=== PATIENT | female | born 1960 | race Caucasian/White ===

== ENCOUNTER 2017-02-20 12:48 | Inpatient (IN) | payer OTHER ==
--- NOTE | 2017-02-14 13:44 | HP ---
Admitting History and Physical - Primary Care Physician PCP: Juwan Vivar - Admission Chief Complaint: Left breast cancer History of Present Illness: 56 year old nulliparous postmenapausal female with family H/O breast caner and personal H/O left breast cancer 2004 for a 1 cm invasive ductal carcinoma ER/MD positive HER 2 negative. S/P left breast wide excision RT no chemotherapy and she refused tamoxifen. Nov 2016 she noticed some left bloody nipple discharge and there was an enlarging left breast density Left lower outer aspect of breast . mammogram and US done 12/20/2016 in [place] showed postop stable changes. MRI done dec 2016 showed suspicious enhancement in lower outer aspect of left breast extending 4 cm. Repeat left breast us was suspicious and US core biopsy 01/24/2017 showed invasive ductal carcinoma ER/ MD negative HER 2 positive. History Source: Patient Limitations to Obtaining History: No Limitations - Past Medical History Psych: Yes: Depression, Other (ADHD) Additional Past Medical History: Left breast invasive breast cancer S/P left breast wide excision/ RT 2004 - Past Surgical History Additional Past Surgical History: Left breast wide excision for left breast invasive cancer 1 cm received RT no chemotherapy or tamoxifen Right breast bx 2011 atypia - Smoking History Smoking history: Never smoked Have you smoked in the past 12 months: No - Alcohol/Substance Use Hx Alcohol Use: Yes (social) Home Medications - Allergies Allergies/Adverse Reactions: Allergies Allergy/AdvReac Type Severity Reaction Status Date / Time No Known Allergies Allergy Verified 02/14/17 13:47 - Home Medications Home Medications (free text): methylphenidate Family Disease History - Family Disease History Family Disease History: CA: Grandparent (pat GF pancreatic ca), Mother (Breast ca at 72) Other Family History: mat aunt leukemia Physical Examination Constitutional: Yes: Well Nourished Breast(s): Yes: Other (Left breast is smaller than right due to wide excision and RT but good cosmetic results. palpable density left breast lower outer aspect left breast which is firm and increased in size +bloody nipple discharge no palpable adneopathy or msses in the right breat) Problem List - Problems (1) Breast cancer, left breast Code(s): C50.912 - MALIGNANT NEOPLASM OF UNSPECIFIED SITE OF LEFT FEMALE BREAST Qualifiers: Breast location: lower outer quadrant of breast Patient sex: female Qualified Code(s): C50.512 - Malignant neoplasm of lower-outer quadrant of left female breast Assessment/Plan Left total mastectomy, senetenl node biopsy , lymphoscintogram, possible axillary node dissection
[2017-02-15 12:08] VITALS: BMI 17.7
[2017-02-20] MEDS ORDERED: DEXAMETHASONE SOD PHOSPHATE 4 MG/1 ML VIAL ONE (15:23)
[2017-02-20] MEDS ORDERED: ONDANSETRON 4 MG/2 ML VIAL ONE (15:23)
[2017-02-20] MEDS ORDERED: HYDROmorphone HCL/PF 1 MG/ML VIAL (FOR PYXIS CHARGING ONLY) ONE (15:29)
[2017-02-20] MEDS ORDERED: ACETAMINOPHEN 325 MG TABLET (FP) PO PRN (16:19)
[2017-02-20] MEDS ORDERED: ZOLPIDEM TARTRATE 5 MG TABLET PO PRN (16:19)
[2017-02-20] MEDS ORDERED: ONDANSETRON 4 MG/2 ML VIAL IVPB PRN (16:19)
[2017-02-20] MEDS ORDERED: ACETAMINOPHEN INJECTION 100 ML IVPB ONE (16:21)
[2017-02-20] MEDS: ACETAMINOPHEN 1000 MG/100 ML VIAL (NON FORMULARY) IVPB ONE ×2 (16:25→17:55)
[2017-02-20] MEDS ORDERED: DEXTROSE 5%-0.45% SALINE 1,000 ML IV SCH (16:30)
[2017-02-20] MEDS ORDERED: ACETAMINOPHEN 325 MG TABLET (FP) PO STA (17:05)
[2017-02-20] MEDS ORDERED: traMADol HCL 50 MG TABLET PO PRN (17:07)
[2017-02-20] MEDS ORDERED: oxyCODONE HCL 5 MG TABLET PO PRN (17:07)
[2017-02-20] MEDS: CEFAZOLIN 1 GM/D5W 50 ML IVPB SCH (21:21)
[2017-02-21] MEDS: CEFAZOLIN 1 GM/D5W 50 ML IVPB SCH ×2 (03:45→09:00)
[2017-02-21 06:22] VITALS: BP 94/53; PULSE 50; TEMP 97.5
[2017-02-21] MEDS ORDERED: HEPARIN NA (PORCINE) 5,000 UNITS/ML 1ML VIAL SQ SCH ×2 (08:00→22:00)
[2017-02-21 09:03] LABS: MCHC 34.6 g/dl (32.0-36.0); MEAN CELL VOLUME 89.7 fl (80-96); MEAN PLT VOLUME 9.3 fl (7.5-11.1); PLATELET COUNT 129 K/MM3 (134-434); RDW 12.1 % (11.6-15.6); WHITE BLOOD COUNT 10.7 K/mm3 (4.0-10.0)
--- NOTE | 2017-02-21 09:10 | PN ---
Progress Note, Physician Chief Complaint: Left breast cancer S/P left total mastectomy sentenel node biopsy History of Present Illness: patient is eating OOB ready for discharge home later today, not using any pain medication - Current Medication List Current Medications: Active Medications Acetaminophen (Tylenol -) 650 mg PO Q4H PRN PRN Reason: FEVER Heparin Sodium (Porcine) (Heparin -) 5,000 unit SQ BID@0800,2000 BRENDON Heparin Sodium (Porcine) (Heparin -) 5,000 unit SQ BID BRENDON Cefazolin Sodium (Ancef 1 Gm Premixed Ivpb -) 50 mls @ 100 mls/hr IVPB Q6H-IV BRENDON Stop: 02/27/17 20:59 Last Admin: 02/21/17 03:45 Dose: 100 mls/hr Dextrose/Sodium Chloride (D5-1/2ns -) 1,000 mls @ 100 mls/hr IV ASDIR BRENDON Last Admin: 02/20/17 17:44 Dose: Not Given Ondansetron HCl (Zofran Injection) 4 mg IVPB Q6H PRN PRN Reason: NAUSEA AND/OR VOMITING Oxycodone HCl (Roxicodone -) 5 mg PO Q4H PRN PRN Reason: PAIN Tramadol HCl (Ultram -) 50 mg PO Q6H PRN PRN Reason: PAIN Zolpidem Tartrate (Ambien -) 5 mg PO HS PRN PRN Reason: Insomnia - Objective Vital Signs: Vital Signs Temperature 97.5 F L 02/21/17 06:00 Pulse Rate 50 L 02/21/17 06:00 Respiratory Rate 18 02/21/17 08:54 Blood Pressure 94/53 02/21/17 06:00 O2 Sat by Pulse Oximetry (%) 100 02/21/17 08:54 Constitutional: Yes: Well Nourished, No Distress Breast(s): Yes: Other (Left breast incision intact with steristrips and flap viable TIMOTHY drain funtioning) Labs: CBC, BMP 02/21/17 07:00 Problem List - Problems (1) Breast cancer, left breast Code(s): C50.912 - MALIGNANT NEOPLASM OF UNSPECIFIED SITE OF LEFT FEMALE BREAST Qualifiers: Breast location: lower outer quadrant of breast Patient sex: female Qualified Code(s): C50.512 - Malignant neoplasm of lower-outer quadrant of left female breast Assessment/Plan Iv antibiotics spirometry OOB with assistance prepare for discharge later today
--- NOTE | 2017-02-21 10:58 | OP ---
DATE OF OPERATION: 02/20/2017 PREOPERATIVE DIAGNOSIS: Left breast cancer, lower outer quadrant. POSTOPERATIVE DIAGNOSIS: Left breast cancer, lower outer quadrant with history of prior left breast cancer. PROCEDURE: Left breast total mastectomy with left axillary sentinel lymph node biopsy. ANESTHESIA: General endotracheal anesthesia. PRIMARY SURGEON: Aleta Vivar MD STOCK PREPARATION OPERATOR: NORTH Martinez COMPLICATIONS: None. Briefly, the patient is a 56-year-old, nulliparous, postmenopausal white female who has a family history with her mother had breast cancer. Her maternal aunt had leukemia, and a paternal grandfather had pancreatic cancer. The patient had been diagnosed with a left breast cancer back in 2004 and underwent the left breast partial mastectomy for 1-cm moderately differentiated, invasive duct cancer which was ER/NC positive, HER2-genny negative, and she had 3 negative lymph nodes at that time. She underwent radiation therapy but no chemotherapy and refused tamoxifen. The patient was doing well and did have a right breast excisional biopsy for atypia in 2010. She then developed bloody nipple discharge and a palpable significant density towards the lower outer aspect of the left breast, initially noticed in November 2016. She ended up getting an ultrasound and mammography at [facility] on December 20, which just was read as some stable postsurgical changes. I was very concerned, and we did an MRI on January 19, 2017, showing suspicious enhancement of the lower outer aspect of the left breast. Due to insurance reasons, we could not biopsy until January 24, 2017, and this came back as a moderately differentiated, invasive duct cancer which was ER/NC negative and HER2-genny 3+ with an intermediate proliferative index. She was sent for a medical oncology evaluation for possible neoadjuvant chemotherapy but was somewhat reluctant to undergo chemotherapy, and after discussion with the medical oncologist, it was decided to go forward with the mastectomy. She did have an MRI which showed the 4-cm lower outer quadrant cancer and had a PET CT scan on February 01, 2017 which showed no suspicious nodes and just the enhancing lesion in the left breast. The patient was scheduled for the surgery and refused any reconstruction options. She understood the need for repeat sentinel lymph node biopsy and possible axillary dissection if any of the nodes were positive. She was brought in for the surgery on February 20, 2017, and underwent a lymphoscintigraphy at [facility] through a periareolar injection of technetium 99 and was brought to the [place] [facility]. In the holding area, site verification was made, and informed consent was obtained. She did eventually consent for genetic testing, and that was sent with the blood which was taken as the IV was placed. DESCRIPTION OF PROCEDURE: The patient was brought into the operating room and laid on the OR table in the supine position. She did receive a prepectoral block preoperatively. She underwent general anesthesia, and a gram of Ancef was given prior to incision. Venodynes were placed on the lower extremities prior to induction. The left breast was sterilely prepped and draped in the usual fashion with the left arm prepped in the field. Lymphazurin blue 3 mL was injected intradermally and peritumorally around the nipple-areolar complex of the left breast. Incision was made just below the hair-bearing area of the left axilla, and dissection was undertaken and some slight blue lymphatics were seen coursing to 2 blue lymph nodes. The first sentinel node was hot with a 10-second gamma count of 1043. The second sentinel node did not have any radioactive count but was blue. Both of these were sent for frozen section and came back negative. No other blue or hot nodes were found, and background count after removal of these 2 nodes was 73. Hemostasis was achieved, and at this point, the mastectomy was performed through a classical elliptical incision encompassing the entire nipple-areolar complex of the left breast. Skin flaps were raised superiorly to the level of the clavicle and medially to the level of the sternum, laterally to the level of the latissimus, and inferiorly below the level of the inframammary fold. The breast was taken down to its pectoralis major muscle from medial to lateral and completely removed intact. It was oriented with a long lateral, short-tipped suture and placed in formalin, sent to Pathology as specimen. Hemostasis was achieved. At this point, skin edges were trimmed for good cosmetic result. Two Jorge drains were placed in the mastectomy flaps, one towards the axilla, one underneath the mastectomy flaps, and brought through separate stab incisions on the lower skin flap and secured in place using a 3-0 nylon suture. The skin was then closed using interrupted 3-0 deep dermal Vicryl suture and a running 4-0 subcuticular Biosyn suture. Mastisol and Steri-Strips were applied over the wounds. A compressive dressing placed over this. She was placed in a surgical bra postoperatively. The patient's laryngeal mask airway tube was removed at the end of the case, and she was brought to the postanesthesia care unit in stable condition. The patient will be recovered and admitted postoperatively for pain and wound management. All sponge and needle counts were correct at the end of the case, and estimated blood loss was about 30 mL. She was hemodynamically stable throughout. ALETA VIVAR M.D. [id number]
--- NOTE | 2017-02-21 12:01 | PN ---
Progress Note (short form) - Note Progress Note: 56 yo female POD#1 Left total mastectomy. Patient doing well. Pain adequately controlled. Happy with anesthetic results. Vitals as charted. Afebrile Continue current care
--- NOTE | 2017-02-23 14:15 | PATH ---
Surgical Pathology Report Patient Name: EMILIANO CHAVEZ [facility]. Rec. #: [id number] /Age/Gender: 1960 (Age: 56) / F Account: [id number] Location: [facility] MED-SURG Taken: 02/20/2017 Received: 02/20/2017 Reported: 02/23/2017 Physicians: Juwan Vivar M.D. Specimen(s) Received A: LEFT AXILLARY SENTINEL NODE #1 B: LEFT AXILLARY SENTINEL NODE #2 C: LEFT BREAST MASTECTOMY Clinical History Recurrent left breast cancer History of prior XRT Intraoperative Consult Diagnosis A. Left sentinel lymph node #1, frozen section: One lymph node, negative for metastatic carcinoma (0/1). B. Left sentinel lymph node #2, frozen section: One lymph node, negative for metastatic carcinoma (0/1). Murray Davenport M.D. 02/20/17 Final Diagnosis A. SENTINEL LYMPH NODE #1, LEFT AXILLARY, BIOPSY: ONE LYMPH NODE NEGATIVE FOR METASTATIC CARCINOMA (0/1). B. SENTINEL LYMPH NODE #2, LEFT AXILLARY, BIOPSY: ONE LYMPH NODE NEGATIVE FOR METASTATIC CARCINOMA (0/1). C. BREAST, LEFT, MASTECTOMY: INVASIVE DUCTAL CARCINOMA, POORLY DIFFERENTIATED, WITH FOCAL APOCRINE FEATURES (LAURIE HISTOLOGIC SCORE OF 8: TUBULAR FORMATION 3 OF 3, NUCLEAR PLEOMORPHISM 3 OF 3, MITOTIC RATE 2 OF 3). INVASIVE CARCINOMA FOCALITY AND SIZE: SINGLE FOCUS, LOWER OUTER QUADRANT,1.2 CM. 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 DCIS EXTENT: DCIS IS EXTENSIVE (MAJOR, >25%), ASSOCIATED WITH INVASIVE CARCINOMA AND PRESENT FOCALLY AWAY FROM IT, INVOLVING LOWER OUTER, LOWER INNER QUADRANTS AND RETROAREOLAR REGION, EXTENDING INTO THE NIPPLE DUCTS. SURGICAL RESECTION MARGINS: INVASIVE CARCINOMA IS ~0.5 MM FROM THE ANTERIOR SOFT TISSUE MARGIN; INVASIVE CARCINOMA 5 MM AWAY DROM THE DEEP MARGIN; DCIS ABUTS CAUTERIZED ANTERIOR SOFT TISSUE MARGINS AND IS <1MM FROM THE DEEP MARGIN. PRIOR BIOPSY SITE CHANGES IDENTIFIED. LYMPHOVASCULAR INVASION: NOT DEFINITIVELY IDENTIFIED. PERINEURAL INVASION: NOT DEFINITIVELY IDENTIFIED. NIPPLE: NOT INVOLVED BY DCIS. SKIN: NOT INVOLVED BY CARCINOMA. SKELETAL MUSCLE: NOT DEFINITIVELY IDENTIFIED. SURROUNDING BREAST TISSUE: FOCI OF FIBROCYSTIC CHANGE WITH FOCAL USUAL DUCTAL HYPERPLASIA, DUCT DILATATION AND STROMAL FIBROSIS. ONE INTRAMMAMARY LYMPH NODE, NEGATIVE FOR CARCINOMA (0/1). PATHOLOGIC STAGING: SEE COMMENT. RECEPTOR STATUS: REFER TO CHECKLIST BELOW. Comment: The carcinoma is recurrent; the pathologic staging corresponds to pT1c pN0. Comments Breast Invasive Carcinoma: Surgical Pathology Cancer Case Summary Based on AJCC/UICC TNM, 7th edition Procedure _x_ Total mastectomy (including nipple and skin) Lymph Node Sampling _x_ Mccloud lymph nodes Specimen Laterality _x_ Left Tumor Size: Size of Largest Invasive Carcinoma Greatest dimension of largest focus of invasion over 1 mm: 1.2 cm (12 mm) Tumor Focality _x_ Single focus of invasive carcinoma Macroscopic and Microscopic Extent of Tumor Skin _x_ Invasive carcinoma does not invade into the dermis or epidermis Nipple _x_ DCIS does not involve the nipple epidermis Skeletal Muscle _x_ No definitive skeletal muscle identified Ductal Carcinoma In Situ (DCIS) _x_ DCIS is present _x_ as a major component (>25% of tumor, extensive intraductal component) Histologic Type of Invasive Carcinoma : _x_ Invasive carcinoma with apocrine features and extensive intraductal component Histologic Grade: ([place] Histologic Score) Tubular Differentiation _x_ Score 3 Nuclear Pleomorphism _x_ Score 3 Mitotic Rate _x_ Score 2 Overall Grade _x_ Grade 3: scores of 8 (poorly differentiated) Margins _x_ Margin close to (< 1 mm) invasive carcinoma: carcinoma is ~0.5mm from the anterior soft tissue margin _x_ Margin positive for DCIS: DCIS abuts cauterized anterior soft tissue margin _x_ Margin close to (< 1 mm) DCIS: deep margin is <1mm from DCIS. Lymph-Vascular Invasion _x_ Not definitively identified Lymph Nodes Total number of lymph nodes examined (sentinel and nonsentinel): 3 Number of sentinel lymph nodes examined: 2 Number of lymph nodes with macrometastases (> 2 mm): 0 Number of lymph nodes with micrometastases (>0.2 mm to 2 mm and/or >200cells):0 Number of lymph nodes with isolated tumor cells (=0.2 mm and =200 cells): 0 Size of largest metastatic deposit (if present): n/a Extranodal Extension _x_ Not applicable Pathologic Staging (pTNM) Primary Tumor (Invasive Carcinoma): pT1c Regional Lymph Nodes (pN): pN0 Distant Metastasis (pM): not applicable Biomarker Studies Results of ER and OR studies performed on this specimen (block # C3) at [facility] are as follows: ER (clone [id number] mouse monoclonal antibody by [employer]): 0% nuclear staining (Negative). OR (clone16 mouse monoclonal antibody by [employer]) diagnosis: 0% nuclear staining (Negative). Results of Her2 (IHC) & Ki-67 studies performed on prior biopsy ([id number]) at [place], [place] ([id number]) are as follows: Her2 IHC (EP3 from [employer], formerly known as [id number], using [employer] Polymer Refine detection kit): 3+ (Positive) Ki67: 15-20% (Intermediate proliferation index) Positive and negative controls (internal if applicable) show appropriate results. Formalin fixation and cold ischemic times are within current ASCO/CAP recommendations for ER, OR and Her2 testing. Electronically Signed Sergo Alonzo M.D. Gross Description A. Received fresh for frozen section evaluation, labeled "left sentinel lymph node #1" is a 0.7 x 0.4 x 0.2 cm lymph node with attached fatty tissue. Frozen section is performed on the lymph node. The frozen section residue is entirely submitted one cassette. B. received fresh for frozen section evaluation, labeled "left sentinel lymph node #2" is a 0.8 x 0.5 x 0.3 cm lymph node with attached fatty tissue. The lymph node is bisected and frozen section is performed. The frozen section residue is entirely submitted in one cassette. C. Received in formalin, labeled "left breast mastectomy" is a 139 gram, 14.5 x 8.0 x 2.8 cm. left mastectomy specimen with a short suture marking the superior aspect and a long suture marking the lateral aspect of the specimen, per the surgeon. The anterior surface displays an 11.3 x 4.1 cm draper, elliptical portion of skin with a 1 cm in diameter nipple. The deep margin is inked black and the anterior soft tissue margin is inked blue. The specimen is serially sectioned from medial to lateral. Sectioning reveals a 4.0 x 2.0 x 2.0 cm draper, ill-defined, indurated mass in the lower outer quadrant (LOQ). The mass abuts both the anterior soft tissue margin and the deep margin. The remaining breast parenchyma displays abundant dense, white, focally firm fibrous tissue. There is a 0.9 x 0.5 x 0.4 cm draper lymph node identified within the axillary region. [employer] [place] sections are submitted in 20 cassettes as follows: 1-serially sectioned nipple; 2-subareolar shave; 3-8-LOQ mass, each with anterior soft tissue margin and deep margin; 9-10-upper outer quadrant; 11-12-upper inner quadrant; 13-14-lower inner quadrant; 93-17-opggdeatiguy tissue; 17-additional anterior soft tissue margin; 18-skin; 19-additional deep margin; 20-one bisected lymph node. Time to formalin fixation: 26 minutes Total formalin fixation time: Approximately 26 hours. 02/21/2017 [facility]02/21/2017
== END 2017-02-21 12:40 | disposition home or self-care (01) | DRG 362 ==
LOC: FM/S 12:48
PROVIDERS: ADMIT Surgery Surgical Oncology; ATTEND Surgery Surgical Oncology
PROC: 0HTU0ZZ Resection of Left Breast, Open Approach (ICD-10-PCS; principal; 2017-02-20 14:39)
PROC: 07B60ZX Excision of Left Axillary Lymphatic, Open Approach, Diagnostic (ICD-10-PCS; 2017-02-20 14:39)
DX: C50.512 Malignant neoplasm of lower-outer quadrant of left female breast (principal)
CPT/HCPCS: 36415; 78195-TC; 85027; 88307-TC; 88331-TC; 94760; A9541; J1644